=== PATIENT | female | born 1960 | race Caucasian/White ===

== ENCOUNTER 2018-08-29 06:29 | Inpatient (IN) ==
[2018-08-29 07:03] LABS: URINE SOURCE CLEAN CATCH
[2018-08-29 07:14] LABS: BILIRUBIN URINE MODERATE (NEGATIVE); BLOOD URINE TRACE-INTACT (NEGATIVE); CLARITY CLEAR (CLEAR); COLOR YELLOW; GLUCOSE URINE NEGATIVE (NEGATIVE); KETONE URINE TRACE mg/dL (NEGATIVE); LEUKOCYTES URINE TRACE (NEGATIVE); NITRITE URINE NEGATIVE (NEGATIVE); PROTEIN URINE 30 mg/dL (NEGATIVE)
[2018-08-29 07:16] LABS: URINE BACTERIA NEGATIVE /HFP; URINE EPITHELIAL CELLS >10 /HPF (<10); URINE RBC <10 /HPF (<10); URINE SMALL ROUND CELLS RENAL PRESENT; URINE WBC <10 /HPF (<10)
--- NOTE | 2018-08-29 07:40 | PROVIDER DOCUMENTATION ---
HPI-General Adult - General Chief Complaint: Fever Stated Complaint: FEVER,NAUSEA,POSS UTI Time Seen by Provider: 08/29/18 07:29 Source: patient Allergies/Adverse Reactions: Patient Allergies Allergy/AdvReac Type Severity Reaction Status Date / Time Penicillins Allergy Intermediate HIVES Verified 08/29/18 07:23 Home Medications: Home Medication List Medication Instructions Recorded Confirmed Last Taken Type Alprazolam 0.5 mg PO BID 08/29/18 08/29/18 08/28/18 History Lisinopril 10 mg PO DAILY 08/29/18 08/29/18 08/28/18 History Nitrofurantoin Monohyd/M-Cryst 100 mg PO BID 08/29/18 08/29/18 08/28/18 History [Macrobid 100 mg Capsule] Omeprazole 40 mg PO DAILY 08/29/18 08/29/18 08/28/18 History Venlafaxine HCl [Venlafaxine HCl 75 mg PO DAILY 08/29/18 08/29/18 08/28/18 History ER] - History of Present Illness -Gen Adult Nature of Presenting Problems: patient was ex-smoker with history of UTI, currently on Macrobid, reported low grade fever for a week, this morning the temperature was 102.9 associated with cough and vomiting. patient still has suprapubic pain but improving. patient appeared in no acute distress but her heart rate was fast, no tachypnea was noticed. Pain Radiation: reports: no radiation Quality of Pain: reports: dull Severity: reports: moderate Onset/Duration: reports: gradual Timing: reports: still present, improving Context/Activities at Onset: reports: none Modifying Factors: improves with: nothing Associated Symptoms: reports: fatigue, fever/chills. denies: chest pain, diaphoresis, diarrhea, dizziness Similar Symptoms Previously?: Yes Review of Systems - Adult - REVIEW OF SYSTEMS - ADULT Constitutional: reports: fever, fatique Eyes: reports: no symptoms reported Ears, Nose, Mouth & Throat: reports: no symptoms reported Cardiovascular: reports: no symptoms reported Respiratory: reports: cough, wheezing. denies: shortness of breath Gastrointestinal: reports: no symptoms reported Genitourinary: reports: no symptoms reported Musculoskeletal: reports: no symptoms reported Integumentary: reports: no symptoms reported Neurological: reports: no symptoms reported Psychiatric: reports: no symptoms reported, anxiety Hematologic/Lymphatic: reports: see HPI Allergic/Immunologic: reports: no symptoms reported Past History - Adult - PAST MEDICAL HISTORY-ADULT Review of Records: reports: Nursing Assessment Review Physical Exam-General - PHYSICAL EXAM-ADULT Initial Vital Signs Reviewed: Yes - CONSTITUTIONAL General Appearance: alert, no apparent distress - EYES Eyes: PERRL/EOMI - HEAD, EARS, NOSE, MOUTH & THROAT HENMT: normocephalic/atraumatic - NECK Neck: non-tender, supple - RESPIRATORY Respiratory: chest non-tender, no pleuratic chest pain, no respiratory distress, wheezing - CARDIOVASCULAR Cardiovascular: normal peripheral pulses, regular rate, rhythm, no edema - GASTROINTESTINAL (ABDOMEN) Abdominal Exam: normal bowel sounds, non tender, soft - LYMPHATIC Lymphatic: no adenopathy - MUSCULOSKELETAL Back Exam: no CVA tenderness, no vertebral tenderness Extremity: non-tender - SKIN Integumentary: normal turgor, warm/dry - NEUROLOGIC Neurologic: oral health therapist II-XII nml as tested, grossly normal Progress - PLAN OF CARE/RESULTS Progress/Plan/Lab Results: Vital Signs - 8 hr 08/29/18 06:33 Temperature 100.0 F H Pulse Rate 136 H Respiratory Rate 20 Blood Pressure 119/71 O2 Sat by Pulse Oximetry 90 L Laboratory Results - last 24 hr 08/29/18 06:45 Urine Source CLEAN CATCH Urine Color YELLOW Urine Clarity CLEAR Urine pH 6.0 Ur Specific [place] 1.020 Urine Protein 30 A Urine Ketones TRACE A Urine Blood TRACE-INTACT A Urine Nitrite NEGATIVE Urine Bilirubin MODERATE A Urine Urobilinogen 1.0 Urine Microscopic RBC <10 Urine WBC TRACE A Urine Microscopic WBC <10 Ur Epithelial Cells >10 A Small Round Cells RENAL PRESENT Urine Bacteria NEGATIVE Urine Glucose NEGATIVE Orders Category Date Time Status URINE CULTURE [RM] Routine Lab 08/29/18 07:16 Received Result Diagrams: 08/29/18 08:10 08/29/18 08:10 Departure - Departure Date of Disposition Decision: 08/29/18 Time of Disposition Decision: 09:50 DIAGNOSIS: SIRS (systemic inflammatory response syndrome), UTI (urinary tract infection), Cough Disposition: ADMITTED INPATIENT 09 Certified Medical Emergency: Emergent Condition: Good - Critical Care Note This patient required my direct & personal management of CC.: No Attestation - Physician/ DAYNA Attestation Patient care was provided by Advanced Practice Provider:: No The physician spent face to face time with patient:: Yes Advanced Practice Provider documentation review:: Supervising physician onsite and consulted in the evaluation and care of this patient. The physician did have a face to face encounter with the patient.
--- NOTE | 2018-08-29 08:24 | Diag Imaging Result Doc PS360 ---
CHEST-1 VIEW - 08/29/2018 INDICATION: fever, wheezes and cough COMPARISON: 08/02/2017 FINDINGS: The lungs are normally expanded and clear. Heart size and mediastinal contours are normal. No pneumothorax or pleural effusion. IMPRESSION: Negative exam. Electronically signed by Lucas Mejia 08/29/2018 8:22 AM
[2018-08-29 08:25] LABS: BASO# 0.01 X1000 (0.0-0.2); BASO% 0.1 % (0.0-0.8); EOS# 0.48 X1000 (0.0-0.7); EOS% 6.3 % (0.0-10.0); HEMATOCRIT 35.4 % (37.0-47.0); HEMOGLOBIN 11.2 g/dL (12.0-16.0); IMM GRAN# 0.02 X1000 (0.0-0.04); IMM GRAN% 0.3 % (0.0-0.5); LYMPH% 3.9 % (20.5-51.1); MCH 27.7 PG (27-31); MCHC 31.6 g/dL (33-37); MCV 87.4 FL (81-99); MONO# 0.41 X1000 (0.11-0.59); MONO% 5.4 % (1.7-9.3); NEUT# 6.43 X1000 (1.4-6.5); PLT 360 X1000 (130-400); RBC 4.05 XMIL (4.2-5.4); RDW 13.7 % (11.5-14.5); WBC 7.65 X1000 (4.8-10.8)
[2018-08-29 08:29] LABS: INR 0.99; PROTIME 13.9 Seconds (11.0-16.0)
[2018-08-29 08:30] LABS: PTT 32.6 Seconds (22.3-41.8)
[2018-08-29 08:50] LABS: AGAP 14; ALB/GLOB RATIO 1.1; ALBUMIN 3.2 g/dL (3.5-5.0); ALKALINE PHOSPHATASE 144 U/L (32-104); BUN 19 mg/dL (8-22); CALCIUM 8.1 mg/dL (8.8-10.2); CHLORIDE 100 mmol/L (98-107); CK PROFILE 32 U/L (24-173); COSMO 283; CREATININE 0.7 mg/dL (0.5-0.9); ESTIMATED GFR > 60; GLUCOSE 150 mg/dL (70-104); GOT 68 U/L (10-30); GPT 65 U/L (10-36); POTASSIUM 3.7 mmol/L (3.5-5.1); SODIUM 139 mmol/L (136-145); TCO2 25 mmol/L (25-35); TOTAL BILIRUBIN 0.24 mg/dL (0.20-1.00)
[2018-08-29] MEDS ORDERED: NS 1,000 ML IV ONE ×2 (09:35→10:07)
[2018-08-29] MEDS ORDERED: LEVAQUIN 500 MG/D5W 500 MG/100 ML IVPB IV ONE (09:36)
[2018-08-29] MEDS ORDERED: TYLENOL PO ONE (09:50)
[2018-08-29] MEDS ORDERED: TORADOL IV PRN (10:03)
--- NOTE | 2018-08-29 12:57 | Diag Imaging Result Doc PS360 ---
US ABDOMEN-COMPLETE - 08/29/2018 INDICATION: vomiting, elevated LFTs, fever COMPARISON: 12/02/2010 FINDINGS: There is moderate diffuse fatty change of the liver. There is stable appearing peripelvic cyst versus focal dilation of the upper right renal collecting system. The left kidney is normal. Renal sizes remain normal. The gallbladder is absent. Common bile duct measures 4.8 mm. The pancreas and spleen are normal. Spleen size is 10 cm. Aorta, IVC, and main portal vein are patent. IMPRESSION: 1. Fatty liver. 2. Focal cystic area of the upper pole the right kidney stable from prior, likely representing a peripelvic cyst. Electronically signed by Lucas Mejia 08/29/2018 12:55 PM
[2018-08-29] MEDS: NS 1,000 ML IV SCH (14:06)
--- NOTE | 2018-08-29 14:09 | HISTORY AND PHYSICAL ---
CHIEF COMPLAINT: I have another urinary tract infection, fever and I am nauseated. HISTORY OF PRESENT ILLNESS: This is a 58-year-old female who presents to the emergency room complaining of a fever of 102.9, cough, vomiting with dysuria, and frequency. She states that she has had a recent urinary tract infection, and she has just completed Macrobid. She stated that symptoms have not improved while on Macrobid. PAST MEDICAL HISTORY: Breast cancer. Chronic UTIs. PAST SURGICAL HISTORY: Appendectomy, cholecystectomy, left mastectomy and colon resection. SOCIAL HISTORY: She smokes half a pack of cigarettes a day. She denies alcohol or illicit drug use. ALLERGIES: Penicillin which causes hives. HOME MEDICATIONS: A list will be obtained by the nursing staff and once verified, will review and restart as appropriate. REVIEW OF SYSTEMS: Discussed with the patient with pertinent positives stated in the HPI. She denies any syncope, dizziness, chest pain, palpitations, any shortness of breath, any diarrhea, constipation, any black or bloody vomitus or stools, any hematuria. PHYSICAL EXAMINATION: GENERAL: This is a 58-year-old female who is sitting up on the side of the stretcher in the emergency room in no distress. VITAL SIGNS: Blood pressure is 119/71 with heart rate 136, respirations are 20, and temperature is 100.9 degrees with room air saturations 92%. EYES: Pupils are equal, round, and react to light. EOMs are intact. Sclerae anicteric. HEENT: Head is normocephalic, atraumatic. Mucous membranes are dry. NECK: Supple. Trachea midline. CARDIOVASCULAR: Regular rate and rhythm. S1 and S2 are appreciated. She has no lower extremity edema. Calves are nontender bilateral with peripheral pulses palpable x4 extremities. PULMONARY: Breath sounds are clear with no increased work of breathing noted. Chest rises and falls symmetric to respiration. Chest wall is nontender to palpation. GASTROINTESTINAL: Abdomen is soft, nontender, and nondistended with bowel sounds in all 4 quadrants. GENITOURINARY: She has no CVAT. SKIN: Warm and dry. NEUROLOGIC: She is alert and oriented x3. LABORATORY: WBC 7.6 with hemoglobin 11.2, hematocrit 35.4, platelets of 360,000. Sodium is 139, potassium 3.7, BUN 19, creatinine 0.7, glucose of 150. AST is 68, ALT 65, and alkaline phosphatase 144, total bilirubin is 0.24. Urinalysis reveals less than 10 microscopic red blood cells and white blood cells greater than 10 epithelial cells, which is consistent with contamination. Urine culture is pending. Chest x-ray reveals a negative exam. Elevated liver function test. We will obtain an ultrasound of her abdomen. ASSESSMENT AND PLAN: 1. Recent urinary tract infection. In review of the patient's past cultures on 08/01, she did have an Enterobacter urinary tract infection, which was susceptible to Levaquin which we will continue, and any further antibiotics will be culture driven. 2. Fever which is very likely secondary to #1. Given Tylenol. 3. Systemic inflammatory response syndrome secondary to #1. 4. Tachycardia. 5. Fever. 6. Vomiting. PLAN: The patient will be admitted to the medical floor. She will be placed on telemetry. We will give a second liter of IV hydration and fluids at 75 an hour as she has respiratory symptoms. We will give Levaquin at 750 mg daily. We will give supplemental oxygen as needed. Further treatments pending hospital course. Dictated by DESTINEY Cobb for Willie Schwarz MD Addendum: Patient seen and examined by myself. Agree with DESTINEY note. It reflects my assessment and plan. Patient is being admitted to hospital for UTI. Will start antibiotics empirically until we got results of final urine and blood cultures. Will monitor patient closely. cc: DESTINEY Cobb MD [facility]ALTH SYSTEMMarce
[2018-08-29] MEDS ORDERED: PRINIVIL PO SCH (22:40)
[2018-08-29] MEDS: XANAX PO SCH (23:06)
[2018-08-29] MEDS: ZOFRAN IV PRN (23:08)
[2018-08-30] MEDS: NS 1,000 ML IV SCH ×3 (04:29→17:43)
[2018-08-30] MEDS: PRILOSEC PO SCH (06:31)
[2018-08-30 07:37] LABS: BASO# 0.02 X1000 (0.0-0.2); BASO% 0.3 % (0.0-0.8); EOS% 10.3 % (0.0-10.0); HEMATOCRIT 33.3 % (37.0-47.0); HEMOGLOBIN 10.1 g/dL (12.0-16.0); IMM GRAN# 0.07 X1000 (0.0-0.04); IMM GRAN% 1.2 % (0.0-0.5); LYMPH# 0.71 X1000 (1.2-3.4); LYMPH% 12.2 % (20.5-51.1); MCH 26.9 PG (27-31); MCHC 30.3 g/dL (33-37); MCV 88.8 FL (81-99); MONO% 8.6 % (1.7-9.3); MPV 9.1 FL (7.4-10.4); NEUT# 3.92 X1000 (1.4-6.5); NEUT% 67.4 % (42.2-75.2); PLT 345 X1000 (130-400); RBC 3.75 XMIL (4.2-5.4); WBC 5.82 X1000 (4.8-10.8)
[2018-08-30 07:50] LABS: AGAP 9; ALB/GLOB RATIO 1.1; ALKALINE PHOSPHATASE 147 U/L (32-104); BUN 11 mg/dL (8-22); CALCIUM 8.2 mg/dL (8.8-10.2); CHLORIDE 103 mmol/L (98-107); COSMO 279; CREATININE 0.6 mg/dL (0.5-0.9); ESTIMATED GFR > 60; GLUCOSE 104 mg/dL (70-104); GOT 68 U/L (10-30); GPT 67 U/L (10-36); POTASSIUM 3.4 mmol/L (3.5-5.1); SODIUM 140 mmol/L (136-145); TCO2 28 mmol/L (25-35); TOTAL BILIRUBIN 0.27 mg/dL (0.20-1.00); TOTAL PROTEIN 5.8 g/dL (6.3-8.3)
[2018-08-30] MEDS: EFFEXOR XR PO SCH (09:04)
[2018-08-30] MEDS: LEVAQUIN 750 MG/D5W 750 MG/150 ML IVPB IV SCH (09:05)
[2018-08-30] MEDS ORDERED: TORADOL IV PRN (11:36)
[2018-08-30] MEDS ORDERED: KLOR-CON PO ONE (11:36)
--- NOTE | 2018-08-30 15:05 | PROGRESS NOTE ---
DATE: 08/30/2018 SUBJECTIVE: The patient reports feeling fine. Denied fever or chills. Still mild burning on urination. OBJECTIVE: Vital Signs: Temperature 98.7, heart rate 89, respiratory rate 16, blood pressure 126/62, O2 saturation 94% on room air. General Examination: This is a 58-year-old, female lying in bed, in no acute distress. Cardiovascular Examination: S1 and S2 heard. No murmurs, gallops, or rubs. Regular rate and rhythm. Respiratory Examination: Clear bilaterally to auscultation. No work of breathing. No using accessory muscles. Abdomen: Soft, nontender to palpation. Bowel sounds present. No organomegaly. No suprapubic tenderness noted. Extremities: No clubbing, cyanosis, or edema. Peripheral pulses present in both legs. Neurological Examination: The patient is alert and oriented x3. Moves 4 extremities. Laboratory Data: The urine culture showed mixed kelly. The blood cultures from yesterday are still pending. The white cell counts yesterday and today are normal. With mild hypokalemia of 3.4. With mildly elevated LFTs. ASSESSMENT AND PLAN: Recurrent urinary tract infection. Because of burning on urination and fever, the patient was admitted to the hospital. She was also vomiting. She has a history of Enterobacter urinary tract infection. At admission, she was started on levofloxacin. We will continue with the same management. The urine culture showing mixed kelly. I think, considering her history of a urinary tract infection, I will continue with the same antibiotics and if she is feeling better, until tomorrow is going to be 48 hours without any fever, so I think at that time, she will be discharged. She is not vomiting anymore. She reports eating a regular diet. As we mentioned before, if she is not developing any fever and urine culture is normal, we will discharge her. cc: Willie Schwarz MD
[2018-08-30] MEDS: ZOFRAN IV PRN (17:28)
[2018-08-30] MEDS: XANAX PO SCH (20:05)
[2018-08-30] MEDS ORDERED: PRINIVIL PO SCH (21:00)
[2018-08-31] MEDS: PRILOSEC PO SCH (06:10)
[2018-08-31] MEDS: NS 1,000 ML IV SCH ×2 (06:10→19:01)
[2018-08-31 07:11] LABS: BASO# 0.05 X1000 (0.0-0.2); BASO% 0.7 % (0.0-0.8); EOS# 0.77 X1000 (0.0-0.7); EOS% 10.2 % (0.0-10.0); HEMATOCRIT 32.7 % (37.0-47.0); HEMOGLOBIN 9.9 g/dL (12.0-16.0); IMM GRAN# 0.17 X1000 (0.0-0.04); IMM GRAN% 2.3 % (0.0-0.5); LYMPH# 1.47 X1000 (1.2-3.4); LYMPH% 19.5 % (20.5-51.1); MCH 26.8 PG (27-31); MCHC 30.3 g/dL (33-37); MCV 88.6 FL (81-99); MONO# 0.63 X1000 (0.11-0.59); MONO% 8.4 % (1.7-9.3); MPV 8.8 FL (7.4-10.4); NEUT# 4.43 X1000 (1.4-6.5); NEUT% 58.9 % (42.2-75.2); PLT 368 X1000 (130-400); RBC 3.69 XMIL (4.2-5.4); RDW 14.2 % (11.5-14.5); WBC 7.52 X1000 (4.8-10.8)
[2018-08-31 07:37] LABS: AGAP 11; ALB/GLOB RATIO 0.9; ALBUMIN 2.9 g/dL (3.5-5.0); ALKALINE PHOSPHATASE 162 U/L (32-104); BUN 10 mg/dL (8-22); CALCIUM 8.2 mg/dL (8.8-10.2); CHLORIDE 104 mmol/L (98-107); COSMO 281; CREATININE 0.6 mg/dL (0.5-0.9); ESTIMATED GFR > 60; GLUCOSE 106 mg/dL (70-104); GOT 46 U/L (10-30); GPT 64 U/L (10-36); POTASSIUM 3.6 mmol/L (3.5-5.1); SODIUM 141 mmol/L (136-145); TCO2 26 mmol/L (25-35); TOTAL BILIRUBIN 0.19 mg/dL (0.20-1.00); TOTAL PROTEIN 6.1 g/dL (6.3-8.3)
[2018-08-31] MEDS: EFFEXOR XR PO SCH (09:35)
[2018-08-31] MEDS: LEVAQUIN 750 MG/D5W 750 MG/150 ML IVPB IV SCH (09:36)
[2018-08-31 19:33] VITALS: BP 149/68
--- NOTE | 2018-09-01 14:50 | DISCHARGE SUMMARY ---
ADMISSION DATE: 08/29/2018 DISCHARGE DATE: 08/31/2018 DISCHARGE DISPOSITION: Home with family. No other discharge needs. DISCHARGE DIAGNOSES: 1. Urosepsis. 2. Normocytic anemia. 3. Transaminitis. 4. Fatty liver. OTHER DIAGNOSES: 1. Morbid obesity. 2. History of breast cancer. 3. History of recurrent urinary tract infection. DISCHARGE MEDICATIONS: 1. Alprazolam 0.5 mg b.i.d. 2. Lisinopril 10 mg daily. 3. Omeprazole 40 mg daily. 4. Venlafaxine extended release 75 mg daily. 5. Levofloxacin 500 mg daily 7 tablets. VITALS: At the time of discharge, temperature 97.5 degrees, pulse 97, respiratory rate 18, blood pressure 149/68, and saturating 96% on room air. PHYSICAL EXAMINATION: General: Patient does not appear in any acute distress. HEENT: Oral cavity is moist. Lungs: Air entry bilaterally equal. No wheezing, rhonchi, or crackles. Cardiovascular: S1, S2 normal. No murmur or gallop. Abdomen: Soft, nontender. Extremities: No lower extremity edema. REVIEW OF SYSTEMS: The patient denies any burning micturition, fever or chills, abdominal pain, or increased frequency of urination anymore. LABORATORY: Significant labs at the time of discharge, WBC 7.5, hemoglobin 9.9, and platelet 368,000. Normal electrolytes. A BUN of 10, creatinine of 0.6, AST of 46, ALT of 64, alkaline phosphatase of 162. SIGNIFICANT MICROBIOLOGY DURING HOSPITAL ADMISSION: Blood culture did not have any growth for 48 hours. Urine culture had mixed kelly. SIGNIFICANT IMAGING DURING HOSPITAL ADMISSION: Chest x-ray did not have any pneumothorax, pleural effusion or consolidation. Abdominal ultrasound had fatty liver, focal cystic area of the upper pole of the right kidney likely representing peripelvic cyst. HOSPITAL COURSE SUMMARY: Ms. Ferreira is 58 year old lady with past medical history of recurrent UTI, who came in with chief complaints of fever, nausea, and vomiting, temperature of 102.9 degrees, dysuria and frequency. She recently had urinary tract infection. She was taking Macrobid as an outpatient, which did not help her symptoms so she decided to come to the emergency room. In the emergency room, she was found to have temperature of 100.1 degrees, pulse of 130, and normal blood pressures so the hospitalist team requested further management. She was started on intravenous fluid resuscitation and intravenous levofloxacin. She received 3 days of IV antibiotics following which she was not having any urinary burning, frequency, or dysuria. She did not have any fever episodes. Blood cultures were negative. Urine cultures only had mixed kelly. It was decided to discharge patient on p.o. levofloxacin. Patient was advised to get repeat liver function tests and discuss results with outpatient doctor. Plan of care discussed with the patient and her family at bedside. All of their questions were answered. TIME SPENT: Less than 30 minutes were spent in discharging this patient. cc: Jerson Nguyễn MD MTDD
== END 2018-08-31 20:19 | disposition home or self-care (01) | DRG 690 ==
LOC: ED 06:29 → SUATTDRO 10:38 → 3N 10:38
PROVIDERS: ATTEND Internal Medicine
CPT/HCPCS: 71010; 71045; 76700; 80053; 81001; 82550; 83605; 84484; 85025; 85610; 85730; 87040; 87088; 94761; 94799; 96365; 99285; A9270; J1956; J2405; J7030